=== PATIENT | female | born 1950 | race Caucasian/White ===

== ENCOUNTER 2019-09-20 22:12 | Observation (INO) ==
[2019-09-21] MEDS ORDERED: Gadolinium Contrast Agent (WT Based) IV PRN (01:34)
[2019-09-21] MEDS ORDERED: 0.9 % Sodium Chloride 250 ML IVC ONE (02:24)
[2019-09-21 02:43] LABS: Activated Partial Thrombo Time 29.7 Seconds (26.0-36.0)
[2019-09-21 02:50] LABS: Alanine Aminotransferase 15 Units/L (7-52); Albumin 4.1 g/dL (3.5-5.7); Albumin/Globulin Ratio 1.6 (1.1-2.2); Alkaline Phosphatase 64 Units/L (34-104); Aspartate Amino Transferase 18 Units/L (13-39); BUN/Creatinine Ratio 25 (6-26); Bilirubin,Total 0.4 mg/dL (0.3-1.0); Blood Urea Nitrogen 36 mg/dL (8-23); Calcium 9.1 mg/dL (8.6-10.3); Carbon Dioxide 23 mEq/L (23-29); Chloride 106 mEq/L (98-107); Cholesterol 132 mg/dL (< 200); Globulin 2.6 g/dL (2.4-3.5); Glucose 200 mg/dL (70-105); HDL Cholesterol 44 mg/dL (40-59); LDL Cholesterol,Calculated 60 mg/dL (0-99); Osmolality,Calculated 298 (280-300); Potassium 4.4 mEq/L (3.5-5.1); Sodium 137 mEq/L (136-145); Total Protein 6.7 g/dL (6.4-8.9); Triglycerides 141 mg/dL (< 150); Troponin I < 0.03 ng/mL (< 0.04); eGFR For African Americans 43 (> 60); eGFR For Non-African Americans 36 (> 60)
[2019-09-21] MEDS ORDERED: Dextrose Gel 15 GM/37.5 ML TUBE PO PRN ×2 (04:06)
[2019-09-21] MEDS ORDERED: *HR* Dextrose 50 % in Water (Syg) 50 ML SYRINGE IVP PRN (04:06)
[2019-09-21] MEDS ORDERED: D5% in Water 1,000 ML IVC PRN (04:06)
[2019-09-21] MEDS ORDERED: Insulin DETEMIR 100 UNIT/ML X5UNITS SQ SCH (04:15)
[2019-09-21] MEDS: *HR* Heparin 5,000 UNIT/ML VIAL SQ SCH ×2 (05:35→14:55)
[2019-09-21 06:29] LABS: Estimated Average Glucose 220 mg/dl
[2019-09-21 06:31] LABS: Bilirubin,Urine Negative (Negative); Blood,Urine Negative (Negative); Clarity,Urine Clear (Clear); Color,Urine Yellow (Yellow); Glucose,Urine (UA) Normal (Normal); Ketones,Urine Negative (Negative); Leukocyte Esterase,Urine Trace (Negative); Nitrite,Urine Negative (Negative); Protein,Urine Negative (Neg-Trace); Specific Gravity,Urine 1.014 (1.010-1.025); Urobilinogen,Urine Normal (Normal)
[2019-09-21 06:33] LABS: Bacteria,Urine Few per hpf (None-Few); Hyaline Casts,Urine None Seen per lpf (None-Few); RBC,Urine 0-3 per hpf (0-3); Squamous Epithelial Cell,Urine Moderate per lpf (None-Few)
[2019-09-21] MEDS: Insulin LISPRO 300 UNITS/3 ML VIAL SQ SCH ×3 (08:36→16:12)
[2019-09-21] MEDS ORDERED: Perflutren Lipid Microsphere 1.3 ML in 0.9 % Sodium Chloride 8.7 ML IVP ONE (13:04)
[2019-09-21] MEDS ORDERED: Perflutren Lipid Microsphere 2 ML VIAL ONE (13:10)
[2019-09-21 15:53] VITALS: BP 124/64
== END 2019-09-21 16:26 | disposition home or self-care (01) ==
LOC: CDU → SUATTDRO 09-21 00:44 → 2ANU 09-21 13:39
PROVIDERS: ADMIT Internal Medicine; ATTEND Internal Medicine